=== PATIENT | male | born 1955 | race Caucasian/White ===

== ENCOUNTER 2022-09-20 09:07 | Outpatient (CLI) | payer OTHER | END 2022-09-20 09:08 | disposition home or self-care (01) | LOC: CSHCT 09:07 | PROVIDERS: ATTEND Family Medicine Sports Medicine | DX: Z12.2 Encounter for screening for malignant neoplasm of respiratory organs (principal); F17.210 Nicotine dependence, cigarettes, uncomplicated; Z13.6 Encounter for screening for cardiovascular disorders | CPT/HCPCS: 71271; 76706 ==